=== PATIENT | male | born 1955 | race Caucasian/White ===

== ENCOUNTER 2021-05-07 17:14 | Emergency (ER) | payer OTHER ==
[~2021-05-07] VITALS: Ht 172.7 cm; Wt 99.8 kg
[2021-05-07] MEDS ORDERED: POTA10CA43 PO (17:31)
[2021-05-07] MEDS ORDERED: SINEMET (17:31)
[2021-05-07] MEDS ORDERED: LANS30CA56 PO (17:31)
[2021-05-07] MEDS ORDERED: SERT-438 PO (17:31)
[2021-05-07] MEDS ORDERED: FURO-151 PO (17:31)
[2021-05-07] MEDS ORDERED: FAMO20TA8 PO (17:31)
--- NOTE | 2021-05-07 17:35 | NUR ---
Pending MD, evaluation. Patient alert and oriented x4 complaints of bilateral lower ext swelling with redness noted and pain 5/10 started a month ago. According to caregiver, he was seen in ER [facility] and gave antibiotics. Patient with history of bilateral lower ext cellulitis, parkinsons, depression, GERD. Vitals stable.
--- NOTE | 2021-05-07 17:40 | NUR ---
MD at bedside, medical screening in process.
[2021-05-07 17:48] LABS: MEAN CORPUSCULAR HEMOGLOBIN 29.9 uug (23.8-33.4); MEAN CORPUSCULAR VOLUME 90.2 fL (73.0-96.2); PLATELET COUNT (AUTO) 348 K/uL (152-348)
[2021-05-07 17:50] LABS: CARBON DIOXIDE 28 mmol/L (21-32); CHLORIDE 102 mmol/L (98-107); CREATININE 1.5 mg/dL (0.6-1.3); GLUCOSE 117 mg/dL (74-106); POTASSIUM 3.7 mmol/L (3.5-5.1); UREA NITROGEN, BLOOD 13 mg/dL (7-18)
[2021-05-07 18:03] LABS: ALANINE AMINOTRANSFERASE 14 U/L (16-63); ALKALINE PHOSPHATASE 115 U/L (50-136); ASPARTATE AMINOTRANSFERASE 17 U/L (15-37); BILIRUBIN,DIRECT 0.1 mg/dL (0.0-0.2); BILIRUBIN,TOTAL 0.6 mg/dL (0.2-1.0); TOTAL PROTEIN, SERUM 7.3 g/dL (6.4-8.2)
--- NOTE | 2021-05-07 20:20 | NUR ---
Patient discharged to home in stable condition. Written and verbal after care instructions given. Patient verbalizes understanding of instructions. Stressed follow up or return to ER for worsening s/s. Steady gait, no SOB or labored breathing. No changes in LOC. Denies any pain/discomfort upon discharge. Accompanied by pediatric acute care unit nurse.
[2021-05-07 20:21] VITALS: BP 122/81
== END 2021-05-07 20:22 | disposition home or self-care (01) ==
LOC: ER 17:14
DX: I87.2 Venous insufficiency (chronic) (peripheral) (principal); G20 Parkinson's disease; I48.92 Unspecified atrial flutter
CPT/HCPCS: 36415; 71045; 84484; 85025; 85730; 93005; A4663